=== PATIENT | male | born 1955 | race African-American/Black ===

== ENCOUNTER 2017-10-14 08:57 | Observation (INO) | payer BC ==
--- NOTE | 2017-10-13 18:44 | GHP ---
[f rep st] PREOP HISTORY AND PHYSICAL DATE OF ADMISSION: 10/14/2017 HISTORY: The patient is a 62-year-old male who presents with left knee pain. He has known arthritis of that knee and he has had symptoms over the last 5 years. He has had both steroid and Supartz inj ections in the past. His symptoms are progressively worsening, are starting to interfere with activi ties of daily living. He has had persistent swelling, limitation of motion and this is altering his gait and causing him to limp. He has tried appropriate medications. He has tried to remain active a nd maintain his strength and flexibility. His x-rays show progression of his osteoarthritis. He has elected to proceed with a left total knee arthroplasty. He has done well with his knee replac ement on the opposite side. PAST MEDICAL HISTORY: He has a history of hypertension requiring multiple medications. He has recen tly had a stress test through [facility] and this was negative for ischemic problems. SURGERY HISTORY: Includes a right total knee arthroplasty in 2010. He has also had a right knee art hroscopy and meniscal work. He has had dental procedures. MEDICATIONS: Include atenolol, verapamil, lisinopril metformin, Januvia, atorvastatin. He also uses K-Erika. SOCIAL HISTORY: He is a nonsmoker. ALLERGIES: He has no known drug allergies. REVIEW OF SYSTEMS: Positive from the cardiopulmonary standpoint for his hypertension. PHYSICAL EXAM: GENERAL: The patient is a well-developed, well-nourished male in no apparent distres s. HEAD AND NECK: Normocephalic, atraumatic. CHEST: Clear. CARDIOVASCULAR: Regular rate and rhy thm. ABDOMEN: Soft. NEUROLOGIC: He is alert and oriented x3. EXTREMITIES: Examination of the le ft knee shows varus alignment. Skin is intact. His neurovascular exam is intact. There is an effus ion. Active range of motion is from a slight flexion contracture to about 180 degrees of flexion. His x-rays show tricompartment osteoarthritis with degenerative lipping, decreased joint spacing and subchondral sclerosis. IMPRESSION: Left knee osteoarthritis. PLAN: Left total knee arthroplasty. Benefits and risks of surgery have been reviewed, including the risk of infection, damage to blood ve ssel or nerve, failure or loosening of the components and need for revision, blood clot in the leg or lungs, bleeding and need for transfusion, and he is well aware of the rehabilitation process. He garcia s signed consent form and wishes to proceed. /[id number]/MODL
[2017-10-14] MEDS ORDERED: ACETAMINOPHEN 325 MG TAB PO ONE (09:27)
[2017-10-14] MEDS ORDERED: TRANEXAMIC ACID IV ONE (09:27)
[2017-10-14] MEDS ORDERED: NS IV ONE (09:27)
[2017-10-14] MEDS ORDERED: FAMOTIDINE 20 MG TAB PO ONE (09:27)
[2017-10-14] MEDS ORDERED: ROPIVACAINE 0.2% 80 MG, EPINEPHrine 0.2 MG, KETOROLAC TROMETHAMINE 30 MG in SYRINGE 0 ML IU ONE (09:27)
[2017-10-14] MEDS ORDERED: DEXAMETHASONE 4 MG/ML VIAL IVP ONE (09:27)
[2017-10-14] MEDS ORDERED: POVIDONE-IODINE 20 ML in SODIUM CL IRRIG SOLUTION 500 ML IRR ONE (09:27)
[2017-10-14] MEDS ORDERED: ceFAZolin 3 GM in D5W 100 ML IV ONE (09:27)
[2017-10-14] MEDS ORDERED: ceFAZolin 1 GM/5 ML SYR ONE (10:06)
[2017-10-14] MEDS ORDERED: fentaNYL 100 MCG/2 ML INJ ONE (10:19)
[2017-10-14] MEDS ORDERED: PROPOFOL/EMULSION 500 MG/50 ML BOTTLE IV ONE (10:20)
[2017-10-14] MEDS ORDERED: ROCURONIUM 100 MG/10 ML VIAL ONE (10:36)
--- NOTE | 2017-10-14 10:52 | PDANEPAE ---
ANE History of Present Illness 62 yo male with multi co-morbidities for L TKA. ANE Past Medical History - Cardiovascular History Hx Hypertension: Yes Hx Arrhythmias: No Hx Chest Pain: Yes Hx Coronary Artery / Peripheral Vascular Disease: No Hx CHF / Valvular Disease: No Hx Palpitations: No Cardiovascular History Comment: htn. hyperlipidemia. abnormal ekg 04/18/2017, stress test negative. seen at [facility]. hx of chest pain 2008 - Pulmonary History Hx COPD: No Hx Asthma/Reactive Airway Disease: No Hx Recent Upper Respiratory Infection: No Hx Oxygen in Use at Home: No Hx Sleep Apnea: Yes Sleep Apnea Screening Result - Last Documented: Positive Pulmonary History Comment: erin positive- instructed pt to bring cpap to hospital dos - Neurologic History Hx Cerebrovascular Accident: No Hx Seizures: No Hx Dementia: No - Endocrine History Hx Diabetes: Yes Hypothyroid: No Obesity: severe Endocrine History Comment: type 2 - Renal History Hx Renal Disorders: Yes Renal History Comment: frequency d/t diurectic - Liver History Hx Hepatic Disorders: No - Neurological & Psychiatric Hx Hx Neurological and Psychiatric Disorders: No - Cancer History Hx Cancer: No - Congenital Disorder History Hx Congenital Disorders: No - GI History GERD: moderate Hx Gastrointestinal Disorders: Yes Gastrointestinal History Comment: GERD - Other Health History Other Health History: wears glasses. 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 Gomez. right knee scope 1968. oral surgeries. toenail removed in [facility] ANE Review of Systems Review of Systems: - Exercise capacity METS (RN): 4 METS - Systems EENMT: Reports: nose congestion (sinus infection 2 weeks s/p 7 days of amoxicillin, still residual nasal congestion and infrequent cough) Cardiac: Reports: no symptoms ANE Patient History - Allergies Allergies/Adverse Reactions: adhesive tape Allergy (Verified 10/02/17 12:15) RASH AT SITE - Home Medications Home Medications: Aspirin [Aspirin 81mg (*)] 81 mg PO DAILY 09/27/17 [Last Taken 10/07/17] Atenolol/Chlorthalidone [Atenolol-Chlorthal 50-25 Tb] 1 each PO DAILY 09/27/17 [ Last Taken 10/13/17] Atorvastatin Calcium [Lipitor 10 mg (*)] 10 mg PO DAILY 09/27/17 [Last Taken 01/24] Herbals/Supplements -Info Only 1 ea PO DAILY 09/27/17 [Last Taken Unknown] Lisinopril [Zestril 10 mg (*)] 10 mg PO DAILY 09/27/17 [Last Taken 10/13/17] Potassium Cl [Klor-Con 20 meq (*)] 40 meq PO BID 09/27/17 [Last Taken 10/13/17] Sildenafil Citrate [Viagra 50 MG (*)] 100 mg PO DAILY PRN 09/27/17 [Last Taken Unknown] Verapamil ER [Calan SR/ER 240MG (*)] 240 mg PO DAILY8 09/27/17 [Last Taken 10/14] metFORMIN HCL [Glucophage 500 mg (*)] 500 mg PO BID 09/27/17 [Last Taken ] sitaGLIPtin PHOSPHATE [Januvia 100 MG (*)] 100 mg PO HS 09/27/17 [Last Taken 12/25] - NPO status NPO Since - Liquids (Date): 10/14/17 NPO Since - Liquids (Time): 07:15 NPO Since - Solids (Date): 10/13/17 NPO Since - Solids (Time): 19:00 - Smoking Hx Smoking Status: Never smoked - Family Anes Hx Family Hx Anesthesia Complications: none ANE Labs/Vital Signs - Vital Signs Blood Pressure: 142/79 Heart Rate: 63 Respiratory Rate: 16 O2 Sat (%): 94 Height: 178 cm Weight: 125.645 kg ANE Physical Exam - Airway Neck exam: FROM Mallampati Score: Class 3 Mouth exam: normal dental/mouth exam - Pulmonary Pulmonary: clear to auscultation - Cardiovascular Cardiovascular: regular rate and rhythym - ASA Status ASA Status: III ANE Anesthesia Plan Anesthesia Plan: spinal (Will attempt SAB per pt request, but in 2010 Dr. Crain unable to place despite repeated attempts. Pt aware back-up plan is GA. )
[2017-10-14] MEDS ORDERED: BUPIVACAINE 0.5% 30 ML SDV ONE (12:06)
[2017-10-14] MEDS ORDERED: ONDANSETRON 4 MG/2 ML VIAL IVP PRN ×2 (12:16→12:55)
[2017-10-14] MEDS ORDERED: ACETAMINOPHEN 500 MG TAB PO PRN (12:16)
[2017-10-14] MEDS ORDERED: DIAZEPAM 10 MG/2 ML SYR IVP PRN (12:16)
[2017-10-14] MEDS ORDERED: NALOXONE HCL 0.4 MG/ML INJ IVP PRN ×2 (12:16→12:21)
[2017-10-14] MEDS ORDERED: LR 500 ML IV PRN (12:16)
[2017-10-14] MEDS ORDERED: OXYCODONE/APAP 5/325 TAB PO PRN (12:16)
[2017-10-14] MEDS ORDERED: ALBUTEROL 3 ML DEYVIAL IH PRN (12:16)
[2017-10-14] MEDS ORDERED: SUGAMMADEX SODIUM 200 MG/2 ML VIAL IVP ONE (12:17)
[2017-10-14] MEDS ORDERED: BISACODYL 10 MG SUPP PR PRN (12:55)
[2017-10-14] MEDS ORDERED: CYCLOBENZAPRINE 10 MG TAB PO PRN (12:55)
[2017-10-14] MEDS ORDERED: TEMAZEPAM 15 MG CAP PO PRN (12:55)
[2017-10-14] MEDS ORDERED: KETOROLAC 30 MG/1 ML SDV IVP PRN (12:55)
[2017-10-14] MEDS ORDERED: MAGNESIUM HYDROXIDE 30 ML UDCUP PO PRN (12:55)
[2017-10-14] MEDS ORDERED: DIPHENOXYLATE/ATROPINE LOMOTIL 1 TAB PO PRN (12:55)
[2017-10-14] MEDS ORDERED: ONDANSETRON DISINTEGRATING 4 MG TAB PO PRN (12:55)
[2017-10-14] MEDS ORDERED: PROMETHAZINE HCL 25 MG/ML INJ IVP PRN (12:55)
[2017-10-14] MEDS ORDERED: NS 500 ML IV PRN (12:55)
[2017-10-14] MEDS ORDERED: POLYETHYLENE GLYCOL 3350 17 GM PKT PO PRN (12:55)
[2017-10-14] MEDS ORDERED: PROMETHAZINE HCL 25 MG SUPPR PR PRN (12:55)
[2017-10-14] MEDS ORDERED: LACTULOSE 20 GM/30 ML UDCUP PO PRN (12:55)
[2017-10-14] MEDS ORDERED: diphenhydrAMINE 25 MG CAP PO PRN (12:55)
[2017-10-14] MEDS ORDERED: METOCLOPRAMIDE 10 MG/2 ML VIAL IVP PRN (12:55)
--- NOTE | 2017-10-14 12:58 | POSTANESTH ---
Post Anesthetic Evaluation Cardiovascular Status: Normal, Stable Respiratory Status: Normal, Stable Level of Consciousness/Mental Status: Can Participate in Eval, Moderately Sleepy Pain Control: Adequate, Prn Tx Ordered Nausea/Vomiting Control: Adequate, Prn Tx Ordered Complications Possibly Related to Anesthesia: None Noted Notes: L adductor canal block in PACU. U/S guided block. Sterile prep. 6" Stimpulex needle inserted in place to U/S probe to adductor canal. 2 cc aliquots of LA placed around femoral artery in canal. Total of 20 mL 0.5 % bupivacaine placed. No complications noted. Pt reports minimal pain in knee. L AC block placed PSR for POPC.
[2017-10-14] MEDS ORDERED: LR 1,000 ML IV SCH (13:00)
[2017-10-14] MEDS ORDERED: SILDENAFIL CITRATE 50 MG TAB PO PRN (13:00)
[2017-10-14] MEDS ORDERED: INSULIN LISPRO 100 UNIT/ML SC ONE (13:08)
[2017-10-14] MEDS: ceFAZolin 2 GM/DEXTROSE 100 ML IV SCH ×2 (15:10→21:30)
[2017-10-14] MEDS ORDERED: D50W 25 GM/50 ML SYR IVP PRN (17:47)
[2017-10-14] MEDS ORDERED: BACITRACIN OINTMENT 1 PACKET TP ONE (18:00)
[2017-10-14] MEDS ORDERED: INSULIN REGULAR HUMAN 100 UNIT/ML UNIT ONE (18:06)
[2017-10-14] MEDS: ACETAMINOPHEN 325 MG TAB PO SCH ×2 (18:07→23:44)
[2017-10-14] MEDS: INSULIN REGULAR HUMAN 100 UNIT/ML UNIT SC SCH ×2 (18:08→21:11)
--- NOTE | 2017-10-14 20:44 | GOP ---
[f rep st] OPERATIVE REPORT DATE OF OPERATION: 10/14/2017 SURGEON: Khanh Gomez MD REFINERY OPERATOR VISBREAKING: Gabe Jiménez [facility], A ANESTHESIOLOGIST: Dr. Sandi Hoffmann. PREOPERATIVE DIAGNOSIS: Left knee osteoarthritis. POSTOPERATIVE DIAGNOSIS: Same PROCEDURE PERFORMED: Left total knee arthroplasty. FINDINGS: SPECIMENS: Included excised bone. All counts were correct. The patient was taken in stable condition to recovery. My pastrycook's assistant was a medical necessity for leg positioning and soft tissue retraction. ESTIMATED BLOOD LOSS: Less than 50 mL. INDICATIONS: The patient is a 62-year-old gentleman who presents with history, exam and x-rays consi stent with severe and progressive left knee osteoarthritis. He has had appropriate conservative aldo ures including steroid and viscosupplementation injections, tried medications and therapies. His art hritic knee impacts his gait. He has swelling and pain. Impacts activities of daily living. He viki l proceed now to a left total knee arthroplasty. DESCRIPTION OF PROCEDURE: The patient was taken to the operating room, and we used a spinal anesthet ic. He received tranexamic acid as well as preoperative antibiotics. Tourniquet was fit high on the left thigh. The left leg was prepped and draped in the usual fashion. I used an anterior straight midline incision. Dissection was carried down through subcutaneous tissue and I used a medial parapa tellar arthrotomy. Patella was inverted and the osteophytes removed with a rongeur. OR. I removed 9 mm of cartilage and bone and sized the patella at a size 38. I drilled the appropriate PEG holes; the combination of his [place] patella and the trial component re-established his patellar thickness. The patella was inverted. The knee was flexed. I removed osteophytes rimming the femur; the arthri tis was severe. I drilled a pilot plant supervisor hole in the distal femur, used an intramedullary alignment jig, us ed a 5-degree valgus cut and an extra 2 mm of bone removal distally for his flexion contracture. I s ized the femur just over a size 8. I downsized to an 8, advanced the cutting block slightly anterior , and made anterior, posterior and chamfer cuts, as well as the notch cuts for this bi-cruciate stabi lized knee and the trial component was an excellent fit. I used an extramedullary device on the tibi a, dialed in the rotation, posterior slope, and appropriate depth of cut. I made a tibial cut and de brided meniscal tissue. I sized the tibial side at a size 6. I dialed in the rotation and completed the tibial prep. All the surfaces were irrigated with antibiotic solution. They were dried. I use d methylmethacrylate cement for all 3 components, first tibia, then femur, and the patella. After th e cement had hardened, I did trial reductions with different thickness articular surface and I found the 9 mm allowed full extension, appropriate soft tissue balance, and I placed the permanent crosslin k poly articular tray, 9 mm thick. I used topical wash of tranexamic acid. I used a Betadine rinse as well. I closed the arthrotomy with interrupted [id number]-de-ipdnm sutures of 0 [place], subcutaneo us tissue was closed with 2-0 Monocryl, and the skin with vanessa. The wound was dressed with Betadi ne-soaked Adaptic, 4 x 4's, sterile Webril, and a long-leg KENYON stocking. There were no complications . No drains. SUMMARY OF COMPONENTS: This is a Son and Nephew Journey knee, Oxinium femoral component, all compo nents cemented. Femur size 8, tibia size 6, the articular insert 9 mm and the patellar component 38 mm. /[id number]/MODL
[2017-10-14] MEDS: SENNOSIDES/DOCUSATE SODIUM TAB PO SCH (21:11)
[2017-10-14] MEDS: FAMOTIDINE 20 MG TAB PO SCH (21:11)
[2017-10-14] MEDS: metFORMIN HCL 500 MG TAB PO SCH (21:12)
[2017-10-14] MEDS: POTASSIUM CL 20 MEQ TAB PO SCH (21:12)
[2017-10-14] MEDS: ASPIRIN 325 MG TAB PO SCH (21:20)
[2017-10-15] MEDS: ACETAMINOPHEN 325 MG TAB PO SCH ×2 (05:28→13:03)
[2017-10-15 07:23] VITALS: RESP 16
[2017-10-15] MEDS: oxyCODONE IR 5 MG TAB PO PRN ×2 (07:36→13:03)
[2017-10-15] MEDS: POTASSIUM CL 20 MEQ TAB PO SCH (07:42)
[2017-10-15] MEDS: FAMOTIDINE 20 MG TAB PO SCH (07:42)
[2017-10-15] MEDS: metFORMIN HCL 500 MG TAB PO SCH (07:43)
[2017-10-15] MEDS: ASPIRIN 325 MG TAB PO SCH (07:44)
[2017-10-15] MEDS: SENNOSIDES/DOCUSATE SODIUM TAB PO SCH (07:45)
--- NOTE | 2017-10-15 07:52 | SOAPPROG ---
SOAP Progress Note Assessment/Plan: Assessment: 09/14/17 POD#1 L TKA, hct 39, xray fine Plan: 10/15/17 07:50 PT/OT, mobilize, oxy asa, home later today possibly Objective: Vital Signs Temp Pulse Resp BP Pulse Ox 36.9 C 65 16 127/64 H 98 10/15/17 07:22 10/15/17 07:22 10/15/17 07:22 10/15/17 07:22 10/15/17 07:22 Laboratory Results 10/15/17 04:37 10/15/17 04:37 10/14/17 10/15/17 10/16/17 05:59 05:59 05:59 Intake Total 2290 Output Total 680 Balance 1610 ICD10 Worksheet Patient Problems: Problems Problem Status Onset Osteoarthritis of left knee Acute - ICD10 Problem Qualifiers (1) Osteoarthritis of left knee Qualifiers: Osteoarthritis type: primary Qualified Code(s): M17.12 - Unilateral primary osteoarthritis, left knee
[2017-10-15] MEDS ORDERED: VERAPAMIL ER 240 MG TAB PO SCH (08:00)
[2017-10-15] MEDS ORDERED: ATENOLOL 50 MG TAB PO SCH (09:00)
[2017-10-15] MEDS ORDERED: ATORVASTATIN CALCIUM 10 MG TAB PO SCH (09:00)
[2017-10-15] MEDS ORDERED: NON-FORMULARY NEW DRUG (Atenolol/Chlorthalidone [Atenolol-Chlorthalidone 50-25] 1 EACH) PO SCH (09:00)
[2017-10-15] MEDS ORDERED: Herbals/Supplements -Info Only PO SCH (09:00)
[2017-10-15] MEDS ORDERED: CHLORTHALIDONE 25 MG TAB PO SCH (09:00)
[2017-10-15] MEDS ORDERED: LISINOPRIL 10 MG TAB PO SCH (09:00)
[2017-10-15] MEDS: INSULIN REGULAR HUMAN 100 UNIT/ML UNIT SC SCH ×2 (09:09→13:04)
[2017-10-15 11:19] VITALS: BP 116/61; PULSE 69; TEMP 98.5; O2SAT 95
--- NOTE | 2017-10-15 12:21 | PDIAF ---
- Diagnosis Diagnosis: left knee osteoarthritis Code Status: Full Code - Medication Management Discharge Medications: Medications to Continue on Transfer Aspirin [Aspirin 81mg (*)] 81 mg PO DAILY 09/27/17 [Last Taken 10/07/17] Atenolol/Chlorthalidone [Atenolol-Chlorthalidone 50-25] 1 each PO DAILY [Last Taken 10/13/17] Atorvastatin Calcium [Lipitor 10 mg (*)] 10 mg PO DAILY 09/27/17 [Last Taken 01/24] Herbals/Supplements -Info Only 1 ea PO DAILY 09/27/17 [Last Taken Unknown] Lisinopril [Zestril 10 mg (*)] 10 mg PO DAILY 09/27/17 [Last Taken 10/13/17] Potassium Cl [Klor-Con 20 meq (*)] 40 meq PO BID 09/27/17 [Last Taken 10/13/17] Sildenafil Citrate [Viagra 50 MG (*)] 100 mg PO DAILY PRN 09/27/17 [Last Taken Unknown] Verapamil ER [Calan SR/ER 240MG (*)] 240 mg PO DAILY8 09/27/17 [Last Taken 10/14] metFORMIN HCL [Glucophage 500 mg (*)] 500 mg PO BID 09/27/17 [Last Taken ] sitaGLIPtin PHOSPHATE [Januvia 100 MG (*)] 100 mg PO HS 09/27/17 [Last Taken 12/25] Aspirin [Aspirin 325 mg (*)] 325 mg PO DAILY tab 10/15/17 [Last Taken Unknown] celeCOXIB [Celebrex (*)] 200 mg PO DAILY #30 cap 10/15/17 [Last Taken Unknown] oxyCODONE IR [Oxycodone Ir (*)] 5 - 10 mg PO Q3HRS PRN #30 tab 10/15/17 [Last Taken Unknown] Discharge Medications: Refer to the Discharge Home Medication list for PRN reason. - Orders Services needed: Physical Therapy Diet Recommendation: ADA 2000 consistent carb Diet Texture: Regular Texture Diet Marcos Stockings Discontinue Date: 2 weeks Wound Care Instructions: keep wound covered, clean and dry Sutures/Belinda Site: l knee Activity/Weight Bearing Restrictions: WBAT, full ROM - Follow Up Care Current Providers and Referrals: Rony Pagan MD [Primary Care Provider] -
--- NOTE | 2017-10-15 13:58 | ASDISCHSUM ---
Discharge Information Plan Status:Home with Home Health Medically Cleared to Leave: Discharge Date:10/15/2017 01:36 PM CM D/C Disposition:Home Health Service ADT D/C Disposition:Home Health Service Projected Discharge Date:10/15/2017 11:00 AM Transportation at D/C: Discharge Delay Reason: Follow-Up Date:10/15/2017 11:00 AM Discharge Slot: Final Diagnosis: Placement Information Referral Type:*Home Health Care Services Referral ID:[id number] Provider Name:[facility] Address 1:[address] Address 2: City:[place] Selection Factors: State:[place] Patient Contact Information Contact Name:WILLOW Relationship: Address:[address] City:[place] Alternate Phone: State/Zip Code:[place] [address] Email: Financial Information Financial Class:HMO and PPO Plans Primary Plan Desc:BC OUT OF STATE PPO Primary Plan Number:[id number] Secondary Plan Desc: Secondary Plan Number: Assessment Information [facility] CM Progress Note CM Note CM Note Notes: Pt medically stable for d/c w [facility] PT, orders to be obtained in [facility]. Date Signed: 10/15/2017 01:56 PM Electronically Signed By:DOMINIC Anton Intervention Information Intervention Type:*Incorrect Registration Date of Service:10/14/2017 01:44 PM Patient Type:Inpatient Staff Member:THIAGO Marti, Whitney Hours: Discipline: Severity: Comment:
== END 2017-10-15 13:36 | disposition home health service (06) ==
LOC: F3N 08:57 → INTOOBSV 08:57 → F3N 14:09
PROVIDERS: ADMIT Orthopaedic Surgery; ATTEND Orthopaedic Surgery
PROC: 0SRD069 Replacement of Left Knee Joint with Oxidized Zirconium on Polyethylene Synthetic Substitute, Cemented, Open Approach (ICD-10-PCS; principal; 2017-10-14 10:45)
DX: M17.12 Unilateral primary osteoarthritis, left knee (principal); M25.562 Pain in left knee; I10 Essential (primary) hypertension; E78.5 Hyperlipidemia, unspecified; K21.9 Gastro-esophageal reflux disease without esophagitis; E11.9 Type 2 diabetes mellitus without complications; G47.33 Obstructive sleep apnea (adult) (pediatric); Z96.661 Presence of right artificial ankle joint
CPT/HCPCS: 27447; 73560; 97116; 97161; 97165; G0378; C1713; J0171; J0690; J1100; J1815; J1885; J2405; J2704; J2795; J3010

== ENCOUNTER 2017-10-15 21:12 | Emergency (ER) | payer BC ==
[2017-10-15 21:18] VITALS: RESP 18
--- NOTE | 2017-10-15 22:15 | EDPHY ---
H & P Stated Complaint: L knee replacement yest, says since being d/c'd ongoing bleeding - worsenin Time Seen by Provider: 10/15/17 21:58 HPI/ROS: HPI The patient presents with bleeding from his surgical dressing. He is 1 day postoperative from left total knee arthroplasty performed by Dr. Gomez. He left the hospital earlier today at approximately 1:30 p.m.. He had some bleeding from the lower portion of his surgical wound which has continued throughout the course of the day. He has had dripping of blood without any large clots. This is moderate in severity and has been constant.. REVIEW OF SYSTEMS Constitutional: No fever, no chills. Musculoskeletal: No back pain. Skin: No rashes. Neurological: No headache. PMHx: Status post total knee arthroplasty Soc Hx: Housed at home with his PHYSICAL General Appearance: Alert, no distress Eyes: Pupils equal and round no pallor or injection ENT, Mouth: Mucous membranes moist Respiratory: Breathing comfortably Neurological: A&O, moves all extremities Skin: Warm and dry, no rashes Musculoskeletal: Neck is supple non tender Extremities: Left knee with large longitudinal incision with vanessa in place, dressing is saturated with blood in the lower 1/3 with blood on his stocking Psychiatric: Patient is oriented X 3, there is no agitation Source: Patient Exam Limitations: No limitations - Personal History Tetanus Vaccine Date: >10 YRS - Medical/Surgical History Hx Asthma: No Hx Chronic Respiratory Disease: Yes Hx Diabetes: Yes Hx Cardiac Disease: No Hx Renal Disease: No Hx Cirrhosis: No Hx Alcoholism: No Hx HIV/AIDS: No Hx Splenectomy or Spleen Trauma: No Other PMH: HTN, high chol, sleep apnea-cpap, DMII, GERD, Gout, bilat TKA - Social History Smoking Status: Never smoked Constitutional: Initial Vital Signs Temperature (C) 37 C 10/15/17 21:15 Heart Rate 101 H 10/15/17 21:15 Respiratory Rate 18 10/15/17 21:15 Blood Pressure 141/101 H 10/15/17 21:15 O2 Sat (%) 93 10/15/17 21:15 O2 Delivery Mode Room Air Allergies/Adverse Reactions: adhesive tape Allergy (Verified 10/15/17 21:18) RASH AT SITE Home Medications: Medication Instructions Recorded Aspirin [Aspirin 81mg (*)] 81 mg PO DAILY 09/27/17 Atenolol/Chlorthalidone 1 each PO DAILY 09/27/17 [Atenolol-Chlorthalidone 50-25] Atorvastatin Calcium [Lipitor 10 10 mg PO DAILY 09/27/17 mg (*)] Herbals/Supplements -Info Only 1 ea PO DAILY 09/27/17 Lisinopril [Zestril 10 mg (*)] 10 mg PO DAILY 09/27/17 Potassium Cl [Klor-Con 20 meq (*)] 40 meq PO BID 09/27/17 Sildenafil Citrate [Viagra 50 MG 100 mg PO DAILY PRN 09/27/17 (*)] Verapamil ER [Calan SR/ER 240MG 240 mg PO DAILY8 09/27/17 (*)] metFORMIN HCL [Glucophage 500 mg 500 mg PO BID 09/27/17 (*)] sitaGLIPtin PHOSPHATE [Januvia 100 100 mg PO HS 09/27/17 MG (*)] Aspirin [Aspirin 325 mg (*)] 325 mg PO DAILY tab 10/15/17 celeCOXIB [Celebrex (*)] 200 mg PO DAILY #30 cap 10/15/17 oxyCODONE IR [Oxycodone Ir (*)] 5 - 10 mg PO Q3HRS PRN #30 tab 10/15/17 Medical Decision Making Differential Diagnosis: 62-year-old man 1 day postoperative from left knee total arthroplasty with bleeding from his surgical wound. It appears that the distal portion of the wound and has a slow ooze of blood. There is no wound dehiscence. I have applied surgical foam and a dressing in the bleeding has stopped. He will be discharged home and has plans to follow up with his orthopedist tomorrow. We have paged his orthopedist, though we have not heard back. Departure - Departure Disposition: Home, Routine, Self-Care Clinical Impression: Status post left knee replacement Condition: Good Instructions: Postoperative Bleeding (ED) Additional Instructions: Please keep the dressing in place until your evaluated by your surgeon. You should return to the emergency room if your worse in any way. Referrals: Rony Pagan MD [Primary Care Provider] - As per Instructions Khanh Gomez MD [Medical Doctor] - As per Instructions
[2017-10-15 23:01] VITALS: BP 146/69; PULSE 77; TEMP 99.3; O2SAT 94
== END 2017-10-15 22:59 | disposition home or self-care (01) ==
DX: Z96.652 Presence of left artificial knee joint (principal); I10 Essential (primary) hypertension; E11.9 Type 2 diabetes mellitus without complications; Z79.82 Long term (current) use of aspirin; Z79.84 Long term (current) use of oral hypoglycemic drugs

== ENCOUNTER 2018-01-05 10:57 | Emergency (ER) | payer BC ==
[2018-01-05 11:04] VITALS: BP 147/71
[2018-01-05] MEDS ORDERED: TDAP ADULT 0.5 ML INJ (BOOSTRIX) IM ONE (11:10)
--- NOTE | 2018-01-05 11:10 | EDPHY ---
H & P Stated Complaint: bit by his cat on lower r leg/foot this morning Time Seen by Provider: 01/05/18 11:09 HPI/ROS: HPI: This is a 62-year-old male who presents with Chief Complaint: bit by his cat on lower r leg/foot this morning Location: Right lower leg Quality: Cat bite Duration: Prior to arrival Signs and Symptoms: No bleeding, no radiation, no numbness, no weakness, no tingling, no incontinence, no decreased range of motion, no swelling, no pain, no fever Timing: Acute Severity: Mild Context: Patient reports that his male house cat, who is up-to-date on vaccinations including rabies, became scared and aggressive when another cat from the neighborhood came to the window. Patient reports that this is the 2nd time that his cat has bit him. He wash the area with soap and water and then port hydrogen peroxide over the cat bite. He denies any paresthesias/weakness/ decreased range of motion/pain. He has no allergies to antibiotics. He is scheduled for left shoulder surgery in 8 days. Does not believe tetanus status current. Denies LOC/head injury/neck pain/dizziness/nausea/vomiting/amnesia. Modifying Factors: See above Comment: ROS: see HPI Constitutional: No fever, no chills, no weight loss Eyes: No blurred vision Respiratory: No shortness of breath, no cough Cardiovascular: No chest pain Gastrointestinal: No nausea, no vomiting no diarrhea Genitourinary: No dysuria Extremities: No myalgias Neurologic: No weakness, no numbness Skin: No rashes Hematologic: No bruising, no bleeding MEDICAL/SURGICAL/SOCIAL HISTORY: Medical history: HTN, high chol, sleep apnea-cpap, DMII, GERD, Gout Surgical history: Bilateral total knee arthroplasty Social history: Retired. CONSTITUTIONAL: Extremely pleasant male, awake and alert, no obvious distress HEENT: Atraumatic and normocephalic. NECK: supple, no midline tenderness, flexion 45 degrees, extension 45 degrees, right and left lateral flexion 45 degrees. No meningismus. Cardiovascular: Normal S1/S2, regular rate, regular rhythm, without murmur rub or gallop. PULMONARY/CHEST: Symmetrical and nontender. no crepitus. Clear to auscultation bilaterally. Good air movement. No accessory muscle usage. ABDOMEN: Soft, nondistended, nontender, no ecchymosis. PELVIC: no pain with rocking; bilateral hips flexion 125 degrees, extension 30 degrees, with no pain internal rotation and no pain external rotation. BACK: No midline tenderness, no paraspinous spasm, deep tendon reflexes 2/2, no pain with straight leg raise, No foot drop. Achilles reflexes are equal bilaterally. Able to walk on heels and toes without difficulty. EXTREMITIES: 2/2 pulses, strength 5/5, Right Ankle: Plantar flexion to 50, dorsiflexion to 20. Foot inversion to 35 degree. No tenderness/swelling Anterior talofibular ligament. No tenderness/swelling Calcaneofibular ligament , no tenderness/swelling posterior talofibular ligament, no tenderness/swelling posterior inferior tibiofibular ligament. Achilles tendon intact. DIP/PIP/MCP flexion/extension intact with good light touch sensation. no deformities, no clubbing, no cyanosis or edema. NEUROLOGICAL: no focal neuro deficits. GCS 15. Light touch sensation intact. SKIN: Warm and dry, 2-3 superficial puncture sites consistent with cat bite on right lower leg-no active bleeding, no erythema. no rash. Good capillary refill. Source: Patient, Family () Exam Limitations: No limitations - Personal History Current Tetanus/Diphtheria Vaccine: Unsure Tetanus Vaccine Date: >10 YRS - Medical/Surgical History Hx Asthma: No Hx Chronic Respiratory Disease: Yes Hx Diabetes: Yes Hx Cardiac Disease: No Hx Renal Disease: No Hx Cirrhosis: No Hx Alcoholism: No Hx HIV/AIDS: No Hx Splenectomy or Spleen Trauma: No Other PMH: HTN, high chol, sleep apnea-cpap, DMII, GERD, Gout, bilat TKA - Social History Smoking Status: Never smoked Constitutional: Initial Vital Signs Temperature (C) 36.5 C 01/05/18 11:01 Heart Rate 80 01/05/18 11:01 Respiratory Rate 17 01/05/18 11:01 Blood Pressure 147/71 H 01/05/18 11:01 O2 Sat (%) 95 01/05/18 11:01 O2 Delivery Mode Room Air Allergies/Adverse Reactions: adhesive tape Allergy (Verified 01/05/18 11:00) RASH AT SITE Home Medications: Medication Instructions Recorded Aspirin [Aspirin 81mg (*)] 81 mg PO DAILY 09/27/17 Atenolol/Chlorthalidone 1 each PO DAILY 09/27/17 [Atenolol-Chlorthalidone 50-25] Atorvastatin Calcium [Lipitor 10 10 mg PO DAILY 09/27/17 mg (*)] Lisinopril [Zestril 10 mg (*)] 10 mg PO DAILY 09/27/17 Potassium Cl [Klor-Con 20 meq (*)] 20 meq PO QID 09/27/17 Sildenafil Citrate [Viagra 50 MG 100 mg PO DAILY PRN 09/27/17 (*)] Verapamil ER [Calan SR/ER 240MG 240 mg PO DAILY8 09/27/17 (*)] metFORMIN HCL [Glucophage 500 mg 500 mg PO BID 09/27/17 (*)] sitaGLIPtin PHOSPHATE [Januvia 100 100 mg PO HS 09/27/17 MG (*)] Acetaminophen [Tylenol ES 500 mg 1,000 mg PO BID PRN 12/24/17 (*)] Ibuprofen [Motrin (*)] 800 mg PO BID PRN 12/24/17 Insulin Detemir [Levemir] 13 unit SQ HS 12/24/17 Amoxicillin/Clavulanate Pot 875 mg PO BID #14 tab 01/05/18 [Augmentin 875 MG TAB (*)] Medical Decision Making ED Course/Re-evaluation: Tetanus booster given. Rx for Augmentin. Rabies immune globulin not indicated Bite is extremely superficial and small; closure not indicated as will heal by secondary intention. Copiously irrigated; bacitracin clean sterile dressing provided No signs of neurovascular compromise/tenting of skin/compartment syndrome/ extremities and joints examined above and below area of concern and are neurovascularly intact/cellulitis. This patient was seen under the supervision of my secondary supervising physician. I evaluated care for this patient independently. Differential Diagnosis: Differential diagnosis includes but is not limited to cellulitis, abscess, puncture wound, laceration. Departure - Departure Disposition: Home, Routine, Self-Care Clinical Impression: Cat bite of right ankle Qualifiers: Encounter type: initial encounter Qualified Code(s): S91.051A - Open bite, right ankle, initial encounter; W55.01XA - Bitten by cat, initial encounter; W55.01XA - Bitten by cat, initial encounter Condition: Good Instructions: Animal Bite (ED) Additional Instructions: Keep the dressing dry and in place for 48 hours. After 48 hours, you may remove the dressing; wash the site daily with mild soap and water; pat dry; apply topical antibiotic ointment daily until fully healed. Take Tylenol 650 mg every 4 hours and/or Ibuprofen 600 mg every 8 hours with food as needed for pain. Take Augmentin twice daily x 7 days. Monitor for signs and symptoms of infection including redness, warmth, drainage , streaking. If these symptoms of infection occur, please return to the emergency room for evaluation. Referrals: Rony Pagan MD [Primary Care Provider] - As per Instructions Prescriptions: Amoxicillin/Clavulanate Pot [Augmentin 875 MG TAB (*)] 875 mg PO BID #14 tab
== END 2018-01-05 11:41 | disposition home or self-care (01) ==
DX: S91.051A Open bite, right ankle, initial encounter (principal); I10 Essential (primary) hypertension; E11.9 Type 2 diabetes mellitus without complications; Z79.82 Long term (current) use of aspirin; Z79.4 Long term (current) use of insulin; Z23 Encounter for immunization; W55.01XA Bitten by cat, initial encounter; Y92.009 Unspecified place in unspecified non-institutional (private) residence as the place of occurrence of the external cause; Y99.8 Other external cause status; Y93.89 Activity, other specified

== ENCOUNTER 2018-01-13 06:08 | Inpatient (IN) | payer BC ==
--- NOTE | 2018-01-12 18:45 | GHP ---
[f rep st] PREOP HISTORY AND PHYSICAL SURGERY DATE: 01/13/2018. HISTORY: The patient is a 62-year-old male who presents with left shoulder pain. 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 X-rays show end-stage severe osteoarthritis. The MRI of his s houlder shows some long head biceps tendinosis. There is some tendinosis of the supraspinatus and gaytan bscapularis. No full-thickness tear. There is an intra-articular loose body about 11 mm and the MRI confirms grade 4 articular surface loss of the glenohumeral joint. He has tried appropriate conserv ative measures, has tried his best to maintain his motion. A left total shoulder is planned. PAST MEDICAL HISTORY: Remarkable for hypertension as well as diabetes, elevated cholesterol, sleep a pnea. MEDICATIONS: Include atenolol, verapamil, lisinopril, metformin in the a.m., Januvia in the p.m., at orvastatin, as well as insulin. ALLERGIES: He has no known drug allergies. He is a nonsmoker. PAST SURGICAL HISTORY: His surgeries include total knee replacements, left and right, had a knee sco pe. He has had dental procedures. REVIEW OF SYSTEMS: Positive from a cardiopulmonary standpoint for his elevated cholesterol, his hype rtension, his sleep apnea, from the endocrine standpoint for diabetes. PHYSICAL EXAM: GENERAL: The patient is a well-developed, well-nourished male, no apparent distress. HEAD AND NECK: Normocephalic, atraumatic. CHEST: Clear. CARDIOVASCULAR: Regular rate and rhyth m. ABDOMEN: Soft. NEUROLOGIC: He is alert and oriented x3. EXTREMITIES: The left shoulder demon strates only about 90 degrees of active forward flexion. He has only 5 degrees of external rotation, he can internally rotate to his lumbar spine. 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 He is quite strong with supraspinatus testing. He is a little tender to p alpation over the AC joint, but does have some degenerative changes. IMPRESSION: Left shoulder has severe glenohumeral osteoarthritis as well as cuff tendinosis and aamir ps tendinosis. PLAN: Left total shoulder arthroplasty. Benefits and risks of surgery have been reviewed with the p atient, including the risk of infection, damage to blood vessel or nerve, failure or loosening of com ponents and need for revision, as well as dislocation or limitations of motion and function of his re placed shoulder. He has successfully undergone other joint replacements. He has signed his consent form and wishes to proceed. /[id number]/MODL
[2018-01-13] MEDS ORDERED: ROPIVACAINE 0.2% 80 MG, EPINEPHrine 0.2 MG, KETOROLAC TROMETHAMINE 30 MG in SYRINGE 0 ML IU ONE (06:20)
[2018-01-13] MEDS ORDERED: TRANEXAMIC ACID 1,000 MG in NS (SYRINGE) 50 ML IV ONE (06:20)
[2018-01-13] MEDS ORDERED: TRANEXAMIC ACID 2,000 MG in NS (SYRINGE) 50 ML IV ONE (06:30)
[2018-01-13] MEDS ORDERED: PREGABALIN 150 MG CAP PO ONE ×2 (06:35→07:00)
[2018-01-13] MEDS ORDERED: ceFAZolin 3 GM in D5W 100 ML IV ONE (06:35)
[2018-01-13] MEDS ORDERED: ACETAMINOPHEN 500 MG TAB PO ONE (06:35)
[2018-01-13] MEDS ORDERED: LR 1,000 ML IV SCH (06:35)
[2018-01-13] MEDS ORDERED: LIDOCAINE 1% 2 ML INJ ID PRN (06:36)
[2018-01-13] MEDS ORDERED: LR 1,000 ML IV ONE (06:36)
[2018-01-13] MEDS ORDERED: BUPIVACAINE/EPI 0.5% 30 ML SDV ONE (06:42)
[2018-01-13] MEDS ORDERED: POLYMYXIN B SULFATE 500,000 UNIT/10 ML SYR IRR ONE (06:42)
[2018-01-13] MEDS ORDERED: BACITRACIN 50,000 UNITS/10 ML SYR IRR ONE (06:42)
--- NOTE | 2018-01-13 07:02 | PDANEPAE ---
ANE Past Medical History - Cardiovascular History Hx Hypertension: Yes Hx Arrhythmias: No Hx Chest Pain: Yes Hx Coronary Artery / Peripheral Vascular Disease: No Hx CHF / Valvular Disease: No Hx Palpitations: No Cardiovascular History Comment: htn. hyperlipidemia. abnormal ekg 04/18/2017, stress test negative. seen at [facility]. hx of chest pain 2008 - Pulmonary History Hx COPD: No Hx Asthma/Reactive Airway Disease: No Hx Recent Upper Respiratory Infection: No Hx Oxygen in Use at Home: No Hx Sleep Apnea: Yes Sleep Apnea Screening Result - Last Documented: Positive Pulmonary History Comment: erin positive- instructed pt to bring cpap to hospital dos - Neurologic History Hx Cerebrovascular Accident: No Hx Seizures: No Hx Dementia: No - Endocrine History Hx Diabetes: Yes Endocrine History Comment: type 2 -last A1 C 7.3 - Renal History Hx Renal Disorders: Yes Renal History Comment: frequency d/t diurectic - Liver History Hx Hepatic Disorders: No - Neurological & Psychiatric Hx Hx Neurological and Psychiatric Disorders: No - Cancer History Hx Cancer: No - Congenital Disorder History Hx Congenital Disorders: No - GI History Hx Gastrointestinal Disorders: No Gastrointestinal History Comment: GERD - Other Health History Other Health History: OA L shoulder pain;wears glasses - Chronic Pain History Chronic Pain: Yes (L shoulder) - Surgical History Prior Surgeries: L total knee 2-18;. 01/[address] Gomez. right knee scope 1967. oral surgeries. toenail removed in [facility] ANE Review of Systems Review of Systems: - Exercise capacity METS (RN): 4 METS ANE Patient History - Allergies Allergies/Adverse Reactions: adhesive tape Allergy (Verified 01/05/18 11:00) RASH AT SITE - Home Medications Home Medications: Aspirin [Aspirin 81mg (*)] 81 mg PO DAILY 09/27/17 [Last Taken 01/06/18] Atenolol/Chlorthalidone [Atenolol-Chlorthalidone 50-25] 1 each PO DAILY [Last Taken 01/12/18 08:00] Atorvastatin Calcium [Lipitor 10 mg (*)] 10 mg PO DAILY 09/27/17 [Last Taken 02/24 08:00] Lisinopril [Zestril 10 mg (*)] 10 mg PO DAILY 09/27/17 [Last Taken 01/12/18 08: 00] Potassium Cl [Klor-Con 20 meq (*)] 20 meq PO QID 09/27/17 [Last Taken 01/12/18 19:00] Sildenafil Citrate [Viagra 50 MG (*)] 100 mg PO DAILY PRN 09/27/17 [Last Taken 1 Month Ago ~12/14/17] Verapamil ER [Calan SR/ER 240MG (*)] 240 mg PO DAILY8 09/27/17 [Last Taken 01/12 08:00] metFORMIN HCL [Glucophage 500 mg (*)] 500 mg PO BID 09/27/17 [Last Taken ] sitaGLIPtin PHOSPHATE [Januvia 100 MG (*)] 100 mg PO HS 09/27/17 [Last Taken 02/24 19:00] Acetaminophen [Tylenol ES 500 mg (*)] 1,000 mg PO BID PRN 12/24/17 [Last Taken 01/11/18] Ibuprofen [Motrin (*)] 800 mg PO BID PRN 12/24/17 [Last Taken 01/06/18] Insulin Detemir [Levemir] 13 unit SQ HS 12/24/17 [Last Taken 01/12/18 21:00] - Smoking Hx Smoking Status: Never smoked - Family Anes Hx Family Hx Anesthesia Complications: none ANE Labs/Vital Signs - Vital Signs Height: 180.34 cm Weight: 127.006 kg ANE Physical Exam - Airway Mallampati Score: Class 1 - ASA Status ASA Status: III ANE Anesthesia Plan Anesthesia Plan: general endotracheal anesthesia, GA w LMA Regional Anesthesia: interscalene BP NB
[2018-01-13] MEDS ORDERED: BUPIVACAINE 0.25% 30 ML SDV ONE (07:10)
[2018-01-13] MEDS ORDERED: MIDAZOLAM 2 MG/2 ML VIAL ONE (07:16)
[2018-01-13] MEDS ORDERED: PROPOFOL 200 MG/20 ML VIAL ONE (07:16)
[2018-01-13] MEDS ORDERED: fentaNYL 100 MCG/2 ML INJ ONE ×3 (07:16→10:56)
[2018-01-13] MEDS ORDERED: LIDOCAINE 2% JELLY 5 ML TUBE ONE (07:18)
[2018-01-13] MEDS ORDERED: METOCLOPRAMIDE 10 MG/2 ML VIAL ONE (07:18)
[2018-01-13] MEDS ORDERED: ONDANSETRON 4 MG/2 ML VIAL ONE ×2 (07:19→10:56)
--- NOTE | 2018-01-13 07:23 | PDHPUP ---
History & Physical Update H&P update statement: This history and physical update is based on an assessment of the patient which was completed after admission or registration (within 24 hours), but prior to the surgery/procedure. H&P update: H&P reviewed & patient examined
[2018-01-13] MEDS ORDERED: ROCURONIUM 50 MG/5 ML VIAL ONE (08:27)
[2018-01-13] MEDS ORDERED: TEMAZEPAM 15 MG CAP PO PRN (10:38)
[2018-01-13] MEDS ORDERED: ACETAMINOPHEN 325 MG TAB PO PRN (10:38)
[2018-01-13] MEDS ORDERED: ONDANSETRON 4 MG/2 ML VIAL IVP PRN ×2 (10:38→10:41)
[2018-01-13] MEDS ORDERED: ACETAMINOPHEN 500 MG TAB PO PRN (10:41)
[2018-01-13] MEDS ORDERED: fentaNYL 100 MCG/2 ML INJ IVP PRN (10:41)
[2018-01-13] MEDS ORDERED: NALOXONE HCL 0.4 MG/ML INJ IVP PRN (10:41)
[2018-01-13] MEDS ORDERED: LR 500 ML IV PRN (10:41)
[2018-01-13] MEDS ORDERED: NS 1,000 ML IV SCH (10:45)
--- NOTE | 2018-01-13 10:45 | POSTANESTH ---
Post Anesthetic Evaluation Cardiovascular Status: Similar to Pre-Op Cond Respiratory Status: Similar to Pre-op Cond. Level of Consciousness/Mental Status: Can Participate in Eval Pain Control: Adequate, Prn Tx Ordered Nausea/Vomiting Control: Adequate, Prn Tx Ordered Complications Possibly Related to Anesthesia: None Noted
--- NOTE | 2018-01-13 11:14 | PDMN ---
Medical Necessity Medical necessity: [facility] [place]: S634 shoulder arthroplasty INPT only -L TSA
--- NOTE | 2018-01-13 11:23 | GOP ---
[f rep st] OPERATIVE REPORT DATE OF OPERATION: SURGEON: Khanh Gomez MD BUMPER OPERATOR: LEONOR Cobos, A ANESTHESIOLOGIST: Albin Echols MD. PREOPERATIVE DIAGNOSIS: Left shoulder osteoarthritis. POSTOPERATIVE DIAGNOSIS: Left shoulder osteoarthritis. PROCEDURE PERFORMED: Left total shoulder arthroplasty. FINDINGS: SPECIMENS: Include the excised humeral head. ESTIMATED BLOOD LOSS: About 100 cc. INDICATIONS: The patient is a 62-year-old gentleman who presents with shoulder pain and limited juan on. X-rays show severe end-stage [id number] osteoarthritis with degenerative lipping, bone spurs, subchondral sclerosis, [id number] contact. His rotator cuff shows some tendinosis, but no full-thi ckness tears. A standard left total shoulder is planned. DESCRIPTION OF PROCEDURE: The patient was taken to the operating room, and a scalene block was provi ded by Dr. Echols. He received antibiotics preoperatively as well as his 1st dose of tranexamic acid . He was placed under general anesthetic with laryngeal mask ventilation. He was placed in a semi b each-chair position using a [place] head charrer, moving his body over to the left side of the table to get good extension of the shoulder. Left shoulder and arm were prepped and draped free in the usu al fashion. I preinjected the incision line for a deltopectoral approach. My incision extended from the coracoid to a location on the anterior upper arm. Dissection was carried down to subcutaneous t issue. I developed a plane between the pectoralis and the deltoid, down to the deltopectoral fascia, which was opened over the humeral head. I identified the biceps distal to the groove. I opened the sheath and tenodesed the biceps with 2 ajitie-gg-wyuvm sutures of FiberWire. I then released the te ndon above this and removed it when in the joint. I opened the joint about a centimeter and a half m edial to the lesser tuberosity and carried this incision into the cuff into the rotator interval. I generated a free muscle tendon unit of the subscapularis. I resected degenerative and tightened and fibrosed capsule. I palpated the course of the axillary nerve and released the inferior capsule. I used a neck cutting guide to design a neck cut in about 25 degrees of retroversion. I then brought t he humeral head up out of the wound and entered the canal with an awl. I broached up to a size 14. I then used anterior and posterior glenoid retractors to expose the glenoid and debrided the edges of degenerative labrum. I localized the center of the glenoid and sized the glenoid at a 48. I reamed the surface to make it smooth and remove any degenerative cartilage, made a center peg hole, and com pleted my more peripheral peg holes for the cement. I dried the surfaces, used a small bit of methyl methacrylate in the 3 peripheral peg holes, and the 48 anchor peg glenoid of crosslink polyethylene w as hammered into place. This was a good fit on the glenoid and was nice and stable. I then drilled holes in the anterior edge of the humeral neck, passed 4 sutures of #2 FiberWire. I then hammered in to place with a press-fit a standard size 14 [employer]vantage DePuy Porocoat stem. I did trial reduc tions. I chose a 52 mm diameter, 18 mm thick standard humeral head. This was placed on the stem and the shoulder reduced. It had appropriate stability. Irrigation was used. I threaded my FiberWire sutures through the subscapularis, and this did provide a nice anterior capsular repair. I also plac ed a couple of tzfwib-ow-kpyzu sutures in the rotator cuff interval. Jet lavage irrigation was used multiple times. I used a joint cocktail and infiltrated the surrounding tissues. I closed the skin in layers using 2-0 Monocryl, a running 3-0 Quill suture. I used tissue glue, a Telfa and a Tegaderm , and he was placed in a sling. COMPLICATIONS: There were no complications. DRAINS: No drains. COUNTS: All counts correct. DISPOSITION: The patient was taken in stable condition to recovery. My surgical elastic knitter hand frame was a medical necessity for this total shoulder replacement. SUMMARY OF COMPONENTS: This is a DePuy [employer] Advantage total shoulder. The stem is size 14, the gl enoid is 48 anchor peg crosslink polyethylene, and the head is a 52 mm x 18 mm round standard spheric al humeral head. /[id number]/MODL
[2018-01-13] MEDS: POTASSIUM CL 20 MEQ TAB PO SCH ×3 (13:06→21:05)
[2018-01-13] MEDS: KETOROLAC 30 MG/1 ML SDV IVP SCH ×3 (13:06→23:34)
[2018-01-13] MEDS ORDERED: ceFAZolin 2 GM/DEXTROSE 100 ML IV SCH (14:00)
[2018-01-13] MEDS: ceFAZolin 2 GM/SWFI 2 GM/20 ML SYR IVP SCH ×2 (16:24→23:35)
[2018-01-13] MEDS: HYDROCODONE/APAP 5/325 TAB PO PRN ×2 (16:40→21:05)
[2018-01-13] MEDS: metFORMIN HCL 500 MG TAB PO SCH (18:14)
[2018-01-13] MEDS ORDERED: AMOXICILLIN/CLAVULANATE POT 875/125 MG TAB PO SCH (21:00)
[2018-01-13] MEDS ORDERED: INSULIN GLARGINE 100 UNITS/ML UNIT SC SCH (21:00)
[2018-01-13] MEDS ORDERED: INSULIN DETEMIR 13 UNIT SQ SCH (21:00)
[2018-01-13] MEDS: DOCUSATE SODIUM 100 MG CAP PO SCH (21:06)
[2018-01-14] MEDS: POTASSIUM CL 20 MEQ TAB PO SCH ×2 (05:32→11:28)
[2018-01-14] MEDS: KETOROLAC 30 MG/1 ML SDV IVP SCH (05:32)
[2018-01-14] MEDS: HYDROCODONE/APAP 5/325 TAB PO PRN ×2 (05:36→11:28)
[2018-01-14] MEDS ORDERED: VERAPAMIL ER 240 MG TAB PO SCH (08:00)
[2018-01-14] MEDS: metFORMIN HCL 500 MG TAB PO SCH (08:16)
[2018-01-14] MEDS: DOCUSATE SODIUM 100 MG CAP PO SCH (08:16)
[2018-01-14] MEDS ORDERED: ATORVASTATIN CALCIUM 10 MG TAB PO SCH (09:00)
[2018-01-14] MEDS ORDERED: NON-FORMULARY NEW DRUG (Atenolol/Chlorthalidone [Atenolol-Chlorthalidone 50-25] 1 EACH) PO SCH (09:00)
[2018-01-14] MEDS ORDERED: ASPIRIN 81 MG CHEWABLE TAB PO SCH (09:00)
[2018-01-14] MEDS ORDERED: CHLORTHALIDONE 25 MG TAB PO SCH (09:00)
[2018-01-14] MEDS ORDERED: ATENOLOL 50 MG TAB PO SCH (09:00)
[2018-01-14] MEDS ORDERED: LISINOPRIL 10 MG TAB PO SCH (09:00)
--- NOTE | 2018-01-14 09:46 | SOAPPROG ---
SOAP Progress Note Assessment/Plan: Assessment: POD #1. s/p L TSA Awake, alert, afebrile. VSS. Dressing clean and dry. Mild pain. Plan: D/c to home later today. 01/14/18 09:44 Objective: Vital Signs Temp Pulse Resp BP Pulse Ox 36.9 C 80 18 122/65 H 92 01/14/18 08:12 01/14/18 08:12 01/14/18 08:12 01/14/18 08:12 01/14/18 08:12 01/13/18 01/14/18 01/15/18 05:59 05:59 05:59 Intake Total 4920 Output Total 800 Balance 4120 ICD10 Worksheet Patient Problems: Problems Problem Status Onset Osteoarthritis of left knee Acute
[2018-01-14 12:37] VITALS: BP 123/65
--- NOTE | 2018-01-14 16:02 | ASMTCMCOM ---
CM Note CM Note Notes: Pt medically stable for d/c, no CM d/c needs identified. Date Signed: 01/14/2018 04:02 PM Electronically Signed By:DOMINIC Anton
== END 2018-01-14 14:53 | disposition home or self-care (01) | DRG 483 ==
LOC: F3N 06:08 → OBSVTOIN 06:08 → F3N 11:51
PROVIDERS: ADMIT Orthopaedic Surgery; ATTEND Orthopaedic Surgery
PROC: 0RRK0JZ Replacement of Left Shoulder Joint with Synthetic Substitute, Open Approach (ICD-10-PCS; principal; 2018-01-13 07:15)
DX: M19.012 Primary osteoarthritis, left shoulder (principal); I10 Essential (primary) hypertension; E78.5 Hyperlipidemia, unspecified; G47.33 Obstructive sleep apnea (adult) (pediatric); E11.9 Type 2 diabetes mellitus without complications; K21.9 Gastro-esophageal reflux disease without esophagitis
CPT/HCPCS: 97161-GP; 97165-GO; 97535-GO; C1713; J0171; J0690; J1815; J1885; J2250; J2405; J2704; J2765; J2795; J3010